=== PATIENT | male | born 1960 | race Caucasian/White ===

== ENCOUNTER 2020-06-24 02:51 | Outpatient (CLI) | payer OTHER, SELFPAY ==
[2020-06-25 13:48] LABS: SARS-CoV-2 RNA PCR Negative
== END 2020-06-24 02:52 | disposition home or self-care (01) ==
LOC: ANHCOVIDDT 02:51
PROVIDERS: PCP Family Medicine; Visit Provider Internal Medicine Gastroenterology
DX: Z01.812 Encounter for preprocedural laboratory examination (principal); Z11.59 Encounter for screening for other viral diseases
CPT/HCPCS: 87635; C9803; U0003

== ENCOUNTER 2020-06-27 01:07 | Day surgery (SDC) | payer OTHER, SELFPAY ==
[2020-06-21 10:45] VITALS: BMI 31.0
--- NOTE | 2020-06-27 12:26 | PM.IMHP ---
H&P: HPI History of Present Illness Date/Time: 06/27/20 12:26 Chief complaint: hx colon polyps Narrative: Reason for visit colonoscopy. This very pleasant gentleman seen in consultation at the request of the primary physician. Impression: Screening and surveillance colonoscopy. The patient's history adenomatous colon polyps and a family history of colorectal cancer. Recommendation: Colonoscopy. History: This very pleasant gentleman has a history of adenomatous colon polyps and a family history of colon cancer. His GI review systems negative. He is here for screening and surveillance colonoscopy. Physical examination: General: very pleasant patient in no acute distress. HEENT: Head was normocephalic sclerae is clear mouth without masses neck was supple. Heart: Rate rhythm regular without S3 or S4. Lungs: CTA. Abdomen: Soft with no guarding or rigidity. Bowel sounds were active. Neurologic: Cranial nerves 2 through 12 intact. No focal defects. No clonus. Musculoskeletal system: Revealed no joint tenderness or swelling no muscle atrophy. Extremities: Reveal no significant edema. Skin: Warm and dry with normal turgor. Mental status: intact. Patient is alert and oriented. Review of Systems Review of Systems: All systems reviewed & are unremarkable except as noted in HPI and below PMFSH Past Medical History Medical History (Updated 06/27/20 @ 12:25 by Shadi Abreu DO) Adenomatous colon polyp Diabetes mellitus Erectile dysfunction Essential (primary) hypertension HLD (hyperlipidemia) HTN (hypertension) Idiopathic gout Osteoarthritis of fingers of both hands Surgical History Surgical History (Updated 06/27/20 @ 12:26 by Shadi Abreu DO) History of knee surgery Left knee - 1994 Hx of colonoscopy Social History Social History Smoking status: Never smoker Second hand tobacco smoke exposure: No Smoking end date: 11/18/86 Alcohol intake: current Substance use: never Substance use type: does not use Meds Home Medications and Allergies Home Medications Medication Instructions Recorded Confirmed Type canagliflozin 300 mg tablet 300 mg PO DAILY #90 tablet 12/28/19 06/21/20 Rx quinapril 20 2 tablet PO DAILY #180 tablet 12/28/19 06/21/20 Rx mg-hydrochlorothiazide 25 mg tablet rosuvastatin 20 mg tablet 20 mg PO .QHS #90 tablet 12/28/19 06/21/20 Rx blood sugar diagnostic #100 each 06/13/20 06/13/20 Rx metformin 500 mg tablet,extended See Rx Instructions .ROUTE 06/27/20 Rx release 24 hr .COMPLEX #360 tablet Allergies Allergy/AdvReac Type Severity Reaction Status Date / Time No Known Allergies Verified 06/21/20 10:38
[2020-06-27 12:37] VITALS: BP 132/84; PULSE 71; RESP 16; TEMP 36.6; O2SAT 97
[2020-06-27] MEDS: LACTATED RINGERS 1,000 ML 150 ML IV CONT (13:03)
[2020-06-27 13:04] LABS: Glucose Point of Care 119 (65-105)
--- NOTE | 2020-06-27 13:16 | WPDANESEPPF ---
Anes - Initial Pre Proc Eval Procedure: Operation Date: 06/27/20 12:30 Proposed Procedures p Screening Colonoscopy - Shadi Abreu DO Date/Time: 06/27/20 13:16 Surgeon: Shadi Abreu DO Pre Op Diagnosis: hx colon polyps Patient Data Age: 60 Gender: M Height: 5 ft 9 in Weight: 95.45 kg Last Vital Signs Temp 97.8 F 06/27/20 12:37 Pulse 71 06/27/20 12:37 Resp 16 06/27/20 12:37 BP 132/84 06/27/20 12:37 Pulse Ox 97 06/27/20 12:37 Allergies Allergy/AdvReac Type Severity Reaction Status Date / Time No Known Allergies Verified 06/27/20 12:32 Home Medications Medication Instructions Recorded Confirmed Type canagliflozin 300 mg tablet 300 mg PO DAILY #90 tablet 12/28/19 06/21/20 Rx quinapril 20 2 tablet PO DAILY #180 tablet 12/28/19 06/21/20 Rx mg-hydrochlorothiazide 25 mg tablet rosuvastatin 20 mg tablet 20 mg PO .QHS #90 tablet 12/28/19 06/21/20 Rx blood sugar diagnostic #100 each 06/13/20 06/13/20 Rx metformin 500 mg tablet,extended See Rx Instructions .ROUTE 06/27/20 Rx release 24 hr .COMPLEX #360 tablet Laboratory Tests 06/27/20 13:01 POC Capillary Glucose 119 mg/dl H mg/dl (65-105) Patient hx anesthesia problems: none Family hx anesthesia problems: none PMFSH Past Medical History Medical History (Updated 06/27/20 @ 12:25 by Shadi Abreu DO) Adenomatous colon polyp Diabetes mellitus Erectile dysfunction Essential (primary) hypertension HLD (hyperlipidemia) HTN (hypertension) Idiopathic gout Osteoarthritis of fingers of both hands Surgical History Surgical History (Updated 06/27/20 @ 12:26 by Shadi Abreu DO) History of knee surgery Left knee - 1994 Hx of colonoscopy Social History Social History Smoking status: Never smoker Second hand tobacco smoke exposure: No Smoking end date: 11/18/86 Alcohol intake: current Substance use: never Substance use type: does not use Anes - Eval Final PreProcedure Day of Procedure 06/27/20 13:16 Patient weight: obese Heart: regular rate and rhythm Lungs: clear to auscultation Airway: Mallampati scale class II Neurological: alert and oriented Last oral intake: >/= 8 hours ASA classification: III Emergent: no Anesthetic plan: proceed Anesthesia type and monitoring: general GIVS and standard monitoring Informed Consent: The patient's anesthetic plan and its attendant risks and benefits were discussed with the patient/family/POA. Questions were solicited and answers provided to the satisfaction of the patient/family/POA.
[2020-06-27] MEDS: SIMETHICONE ORAL SUSPENSION 20 MG/0.3 ML 30 ML BOTTLE 0.6 ML IRRIGATION (14:19)
[2020-06-27 14:35] VITALS: BP 101/65; PULSE 62; RESP 21; O2SAT 93
[2020-06-27 14:45] VITALS: BP 109/71; PULSE 61; RESP 20; O2SAT 94
== END 2020-06-27 15:10 | disposition home or self-care (01) ==
PROVIDERS: PCP Family Medicine; Visit Provider Internal Medicine Gastroenterology
PROC: 0DJD8ZZ Inspection of Lower Intestinal Tract, Via Natural or Artificial Opening Endoscopic (ICD-10-PCS; CPT 45378; principal; 2020-06-27 12:30)
DX: Z12.11 Encounter for screening for malignant neoplasm of colon (principal); D12.2 Benign neoplasm of ascending colon; K63.5 Polyp of colon; K64.8 Other hemorrhoids; Z80.0 Family history of malignant neoplasm of digestive organs; E11.9 Type 2 diabetes mellitus without complications; E78.5 Hyperlipidemia, unspecified; I10 Essential (primary) hypertension; M10.00 Idiopathic gout, unspecified site; N52.9 Male erectile dysfunction, unspecified; Z79.84 Long term (current) use of oral hypoglycemic drugs; E66.9 Obesity, unspecified; Z68.31 Body mass index [BMI] 31.0-31.9, adult
CPT/HCPCS: 45385; 87635; 88305; C9803; J2370; J2704; J7120; U0003

== ENCOUNTER → 2021-12-29 07:33 | Outpatient (CLI) | payer OTHER, SELFPAY ==
--- NOTE | ~2021-12-29 | MR_ITS ---
EXAMINATION: MR hip LT wo con DATE: 12/29/2021 08:33 INDICATION: Left hip pain TECHNIQUE: Magnetic resonance imaging (MRI) of the left hip was performed without intravenous contra st. Sequences included full-field axial PD-weighted FS FSE and T1-weighted FSE, coronal of the pelvis with PD-weighted FS FSE, T2-weighted FSE and T1-weighted FSE, small field of view of the left hip w ith axial PD-weighted FS FSE, sagittal PD-weighted FS FSE, coronal PD-weighted FS FSE and coronal T2 weighted FSE. Additional radial T1-weighted FGR oriented orthogonal to the acetabular rim were obtai jerardo for evaluation of the labrum. COMPARISON: None FINDINGS: Bones/labrum/cartilage: Alignment is normal. There is a region of osteonecrosis underlying the cephalad aspect of the left fe moral head which measures 3.3 cm both AP and medial to lateral. There is a subtle 1 mm cortical step- off at the apex of the femoral head consistent with minimal depression of the articular surface later al to the step-off consistent with secondary collapse of the articular cortex. There is prominent lik christine secondary reactive edema at the left femoral head extending into the neck and intertrochanteric r egion of the proximal left femur. Left hip osteoarthritis with severe nonuniform joint space narrowin g and additional subarticular edema along the anterosuperior to superior lateral aspect of the left a cetabulum. Moderate to severe spondylosis in the visualized lower lumbar spine with mild fibrovascula r degenerative endplate changes with severe disc height loss at L5-S1. Marrow signal is otherwise nor mal throughout the remainder of the pelvis and proximal right femur. Aside from the collapsed of the articular surface of the left femoral head no other fractures identified. Diffuse degenerative tearin g of the left acetabular labrum which appears thickened with diffuse amorphous increased signal. Righ t hip joint space appears relatively preserved on the large [id number] images. Fluid: Asymmetric increased fluid signal at the left hip joint space which could represent a small joint eff usion and/or reactive synovitis. Physiologic amount fluid in the right hip joint. Soft tissues: No asymmetric muscle atrophy at the pelvis or proximal thighs. There is likely reactive muscular sean a medially along side the intratrochanteric region and proximal subtrochanteric left femur. The iliop soas tendons are normal. Mild tendinopathy without discrete tear at the bilateral proximal hamstring tendons. Additional mild right-sided and moderate left-sided gluteus medius and minimus tendinopathy without discrete tear. Limited evaluation of visceral organs of the pelvis is unremarkable. No patho logically enlarged pelvic/inguinal lymphadenopathy. IMPRESSION: 1. 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 2. Diffuse degenerative tearing of the left acetabular labrum. 3. Moderate to severe lumbar spondylosis. 4. Tendinopathy without discrete tears at the bilateral gluteal and proximal hamstring tendons as det virginie above. Reviewed, dictated and finalized at location A. CRUSHER IMPRESSION: 1. 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 2. Diffuse degenerative tearing of the left acetabular labrum. 3. Moderate to severe lumbar spondylosis. 4. Tendinopathy without discrete tears at the bilateral gluteal and proximal jenkins mstring tendons as detailed above.
== END ==
PROVIDERS: PCP Family Medicine; Visit Provider Nurse Practitioner
DX: M87.852 Other osteonecrosis, left femur (principal); M47.896 Other spondylosis, lumbar region
CPT/HCPCS: 73721

== ENCOUNTER 2022-07-30 10:52 | Outpatient (CLI) | payer OTHER, SELFPAY ==
[2022-07-30 19:06] LABS: Basophils Percent Auto 0.7 % (0.2-1.2); Eosinophils Absolute Auto 0.1 K/mm3 (0-0.3); Eosinophils Percent Auto 1.1 % (0-4.4); Hematocrit 52.1 % (42.0-52.0); Hemoglobin 17.2 g/dL (14.0-18.0); Immature Granulocyte Absolute 0.03 K/mm3 (0.00-0.031); Immature Granulocyte Percent A 0.5 % (0-0.5); Immature Platelet Fraction Pct 8.1 % (0.9-11.2); Lymphocytes Absolute Auto 1.95 K/mm3 (0.9-3.2); Lymphocytes Percent Auto 34.8 % (18.3-44.2); Mean Corpuscular Hemoglobin 30.3 pg (26-34); Mean Corpuscular Volume 91.9 fl (80-100); Mean Platelet Volume 12.1 fl (7.4-10.4); Monocytes Absolute Auto 0.5 K/mm3 (0.1-0.6); Monocytes Percent Auto 8.6 % (2.6-8.5); Neutrophils Percent Auto 54.3 % (45.5-73.1); Platelet Count Result 151 k/mm3 (150-375); Red Blood Count 5.67 M/mm3 (4.6-6.20); Red Cell Distribution Width 14.1 % (11.5-14.5); White Blood Count 5.6 K/mm3 (4.5-10.0)
[2022-07-30 19:12] LABS: Alanine Aminotransferase 27 U/L (6-50); Albumin Level 4.4 g/dL (3.5-5.1); Alkaline Phosphatase 77 U/L (38-126); Anion Gap 10 mmol/L (8-16); Aspartate Amino Transferase 39 U/L (17-59); Bilirubin,Total 0.6 mg/dL (0.2-1.3); Blood Urea Nitrogen 16 mg/dL (9-20); Carbon Dioxide 28 mmol/L (22-30); Chloride 100 mmol/L (98-107); Cholesterol 290 mg/dL (0-200); Estimated Glomerular Filt Rate > 60; Glucose 119 mg/dL (65-110); HDL Direct 50 mg/dL; Potassium 4.6 mmol/L (3.4-5.0); Sodium 138 mmol/L (137-145); Triglycerides 157 mg/dL (<150); Uric Acid 5.2 mg/dL (3.5-8.5)
[2022-07-30 19:22] LABS: Creatinine Urine 43.9 mg/dL
[2022-07-30 19:23] LABS: Hemoglobin A1C 6.5 % (<5.7); LDL Cholesterol Direct 210 mg/dL
[2022-07-30 19:43] LABS: Prostate Specific Antigen 1.7 ng/mL (< OR = 4.0)
[2022-07-30 20:04] LABS: MALB Creatinine Ratio < 13.7 mg/g (0-30); Microalbumin Urine Random < 6.0 mg/L (0-16.7)
== END 2022-07-30 10:53 | disposition home or self-care (01) ==
LOC: ANHGOSHLAB 10:53
PROVIDERS: PCP Family Medicine; Visit Provider Family Medicine
DX: Z00.00 Encounter for general adult medical examination without abnormal findings (principal); E78.5 Hyperlipidemia, unspecified; M10.00 Idiopathic gout, unspecified site; E53.8 Deficiency of other specified B group vitamins; I10 Essential (primary) hypertension; E11.9 Type 2 diabetes mellitus without complications; E55.9 Vitamin D deficiency, unspecified; Z12.5 Encounter for screening for malignant neoplasm of prostate
CPT/HCPCS: 36415; 80053; 80061; 82043; 82306; 82607; 83036; 84153; 84443; 84550; 85025; 85055; G0103

== ENCOUNTER 2023-02-04 09:16 | Outpatient (CLI) | payer OTHER, SELFPAY ==
[2023-02-04 20:12] LABS: Basophils Percent Auto 0.6 % (0.2-1.2); Eosinophils Absolute Auto 0.1 K/mm3 (0-0.3); Eosinophils Percent Auto 2.2 % (0-4.4); Hematocrit 48.9 % (42.0-52.0); Immature Granulocyte Absolute 0.01 K/mm3 (0.00-0.031); Immature Granulocyte Percent A 0.2 % (0-0.5); Lymphocytes Absolute Auto 1.93 K/mm3 (0.9-3.2); Lymphocytes Percent Auto 35.7 % (18.3-44.2); Mean Corpuscular HGB Conc 32.7 g/dl (32-36); Mean Corpuscular Hemoglobin 30.7 pg (26-34); Mean Corpuscular Volume 93.9 fl (80-100); Mean Platelet Volume 11.3 fl (7.4-10.4); Monocytes Absolute Auto 0.6 K/mm3 (0.1-0.6); Monocytes Percent Auto 10.5 % (2.6-8.5); Neutrophils Absolute Auto 2.8 K/mm3 (1.3-6.7); Neutrophils Percent Auto 50.8 % (45.5-73.1); Platelet Count Result 147 k/mm3 (150-375); Red Blood Count 5.21 M/mm3 (4.6-6.20); Red Cell Distribution Width 13.1 % (11.5-14.5); White Blood Count 5.4 K/mm3 (4.5-10.0)
[2023-02-04 21:05] LABS: Alanine Aminotransferase 27 U/L (6-50); Albumin Level 4.4 g/dL (3.5-5.1); Alkaline Phosphatase 58 U/L (38-126); Anion Gap 9 mmol/L (8-16); Aspartate Amino Transferase 24 U/L (17-59); Bilirubin,Total 0.7 mg/dL (0.2-1.3); Blood Urea Nitrogen 15 mg/dL (9-20); Calcium 9.5 mg/dL (8.4-10.2); Carbon Dioxide 28 mmol/L (22-30); Chloride 100 mmol/L (98-107); Cholesterol 191 mg/dL (0-200); Estimated Glomerular Filt Rate > 60; Glucose 116 mg/dL (65-110); HDL Direct 39 mg/dL; Potassium 4.6 mmol/L (3.4-5.0); Sodium 137 mmol/L (137-145); Triglycerides 172 mg/dL (<150)
[2023-02-04 21:15] LABS: Creatinine Urine 39.3 mg/dL
[2023-02-04 21:16] LABS: Hemoglobin A1C 7.1 % (<5.7); LDL Cholesterol Direct 120 mg/dL
[2023-02-04 21:34] LABS: MALB Creatinine Ratio < 15.3 mg/g (0-30); Microalbumin Urine Random < 6.0 mg/L (0-16.7)
== END 2023-02-04 09:17 | disposition home or self-care (01) ==
LOC: ANHGOSHLAB 09:17
PROVIDERS: PCP Family Medicine; Visit Provider Nurse Practitioner
DX: E78.5 Hyperlipidemia, unspecified (principal); I10 Essential (primary) hypertension; E11.9 Type 2 diabetes mellitus without complications
CPT/HCPCS: 36415; 80053; 80061; 82043; 83036; 85025

== ENCOUNTER 2023-08-12 09:44 | Outpatient (CLI) | payer OTHER, SELFPAY ==
[2023-08-12 19:05] LABS: Creatinine Urine 36.4 mg/dL
[2023-08-12 19:20] LABS: Hemoglobin A1C 6.5 % (<5.7)
[2023-08-12 19:23] LABS: Microalbumin Urine Random < 6.0 mg/L (0-16.7)
[2023-08-12 19:33] LABS: Alanine Aminotransferase 27 U/L (6-50); Albumin Level 4.7 g/dL (3.5-5.1); Alkaline Phosphatase 57 U/L (38-126); Anion Gap 9 mmol/L (8-16); Aspartate Amino Transferase 31 U/L (17-59); Bilirubin,Total 1.2 mg/dL (0.2-1.3); Blood Urea Nitrogen 17 mg/dL (9-20); Calcium 9.4 mg/dL (8.4-10.2); Carbon Dioxide 28 mmol/L (22-30); Chloride 98 mmol/L (98-107); Cholesterol 223 mg/dL (0-200); Estimated Glomerular Filt Rate > 60; Glucose 98 mg/dL (65-110); HDL Direct 50 mg/dL; Potassium 4.4 mmol/L (3.4-5.0); Sodium 135 mmol/L (137-145); Triglycerides 216 mg/dL (<150)
[2023-08-12 19:42] LABS: Basophils Percent Auto 0.6 % (0.2-1.2); Eosinophils Absolute Auto 0.1 K/mm3 (0-0.3); Eosinophils Percent Auto 2.2 % (0-4.4); Hematocrit 50.4 % (42.0-52.0); Immature Granulocyte Absolute 0.01 K/mm3 (0.00-0.031); Immature Granulocyte Percent A 0.2 % (0-0.5); Lymphocytes Absolute Auto 2.05 K/mm3 (0.9-3.2); Lymphocytes Percent Auto 40.4 % (18.3-44.2); Mean Corpuscular HGB Conc 33.7 g/dl (32-36); Mean Corpuscular Hemoglobin 30.9 pg (26-34); Mean Corpuscular Volume 91.5 fl (80-100); Mean Platelet Volume 11.7 fl (7.4-10.4); Monocytes Absolute Auto 0.5 K/mm3 (0.1-0.6); Monocytes Percent Auto 10.4 % (2.6-8.5); Neutrophils Absolute Auto 2.4 K/mm3 (1.3-6.7); Neutrophils Percent Auto 46.2 % (45.5-73.1); Platelet Count Result 149 k/mm3 (150-375); Red Blood Count 5.51 M/mm3 (4.6-6.20); Red Cell Distribution Width 12.8 % (11.5-14.5); White Blood Count 5.1 K/mm3 (4.5-10.0)
[2023-08-12 19:44] LABS: LDL Cholesterol Direct 137 mg/dL
[2023-08-12 20:19] LABS: Vitamin D 25 Hydroxy 35.5 ng/mL
[2023-08-13 17:50] LABS: Prostate Specific Antigen 0.4 ng/mL (< OR = 4.0)
== END 2023-08-12 09:45 | disposition home or self-care (01) ==
PROVIDERS: PCP Family Medicine; Visit Provider Family Medicine
DX: Z12.5 Encounter for screening for malignant neoplasm of prostate (principal); Z00.00 Encounter for general adult medical examination without abnormal findings; M10.00 Idiopathic gout, unspecified site; E53.8 Deficiency of other specified B group vitamins; Z79.899 Other long term (current) drug therapy; I10 Essential (primary) hypertension; E55.9 Vitamin D deficiency, unspecified; E78.5 Hyperlipidemia, unspecified; E11.9 Type 2 diabetes mellitus without complications
CPT/HCPCS: 36415; 80053; 80061; 82043; 82306; 82607; 83036; 84153; 84443; 84550; 85025; G0103

== ENCOUNTER → 2023-08-12 13:26 | Outpatient (CLI) | payer OTHER, SELFPAY ==
--- NOTE | ~2023-08-12 | US_ITS ---
US soft tissue chest 08/12/2023 13:50 Indication: Localized swelling. Palpable mass. Procedure: High-resolution Limited ultrasound of the right shoulder Comparison: No prior studies for comparison. Findings: There is a complex fluid collection in the area of palpable concern with heterogeneous inte rnal echotexture measuring 1.7 x 1.06 cm. This fluid collection lies adjacent to the acromion. Impression: 1: Complex 1.7 cm fluid collection of the right shoulder in the area of palpable concern, most likely hemorrhage. Consider infection in the appropriate clinical setting. Consider further evaluation with MRI. Reviewed, dictated and finalized at location L. Impression: 1: Complex 1.7 cm fluid collection of the right shoulder in the area of palpabl e concern, most likely hemorrhage. Consider infection in the appropriate clinic al setting. Consider further evaluation with MRI.
== END ==
PROVIDERS: PCP Family Medicine; Visit Provider Family Medicine
DX: R22.2 Localized swelling, mass and lump, trunk (principal)
CPT/HCPCS: 76604

== ENCOUNTER 2024-02-24 08:41 | Outpatient (CLI) | payer OTHER, SELFPAY ==
[2024-02-24 19:59] LABS: Basophils Percent Auto 0.7 % (0.2-1.2); Eosinophils Absolute Auto 0.1 K/mm3 (0-0.3); Eosinophils Percent Auto 2.4 % (0-4.4); Hematocrit 46.8 % (42.0-52.0); Hemoglobin 15.2 g/dL (14.0-18.0); Immature Granulocyte Absolute 0.01 K/mm3 (0.00-0.031); Immature Granulocyte Percent A 0.2 % (0-0.5); Lymphocytes Absolute Auto 1.94 K/mm3 (0.9-3.2); Lymphocytes Percent Auto 36.1 % (18.3-44.2); Mean Corpuscular HGB Conc 32.5 g/dl (32-36); Mean Corpuscular Hemoglobin 30.2 pg (26-34); Mean Corpuscular Volume 92.9 fl (80-100); Mean Platelet Volume 11.1 fl (7.4-10.4); Monocytes Absolute Auto 0.6 K/mm3 (0.1-0.6); Monocytes Percent Auto 11.2 % (2.6-8.5); Neutrophils Absolute Auto 2.7 K/mm3 (1.3-6.7); Neutrophils Percent Auto 49.4 % (45.5-73.1); Platelet Count Result 165 k/mm3 (150-375); Red Blood Count 5.04 M/mm3 (4.6-6.20); Red Cell Distribution Width 13.1 % (11.5-14.5); White Blood Count 5.4 K/mm3 (4.5-10.0)
[2024-02-24 20:52] LABS: Alanine Aminotransferase 22 U/L (6-50); Albumin Level 4.5 g/dL (3.5-5.1); Alkaline Phosphatase 53 U/L (38-126); Anion Gap 9 mmol/L (4-12); Aspartate Amino Transferase 33 U/L (17-59); Bilirubin,Total 0.7 mg/dL (0.2-1.3); Blood Urea Nitrogen 15 mg/dL (9-20); Calcium 9.9 mg/dL (8.4-10.2); Carbon Dioxide 27 mmol/L (22-30); Chloride 100 mmol/L (98-107); Cholesterol 160 mg/dL (0-200); Estimated Glomerular Filt Rate > 60; Glucose 104 mg/dL (65-110); HDL Direct 42 mg/dL; Potassium 4.9 mmol/L (3.4-5.0); Sodium 136 mmol/L (137-145); Triglycerides 172 mg/dL (<150)
[2024-02-24 21:05] LABS: LDL Cholesterol Direct 97 mg/dL
[2024-02-24 23:44] LABS: Hemoglobin A1C 7.2 % (<5.7)
[2024-02-27 14:20] LABS: Vitamin D 1,25 (OH)2 Total 30 pg/mL (18-72); Vitamin D2 1,25 (OH)2 <8 pg/mL; Vitamin D3 1,25 (OH)2 30 pg/mL
== END 2024-02-24 08:42 | disposition home or self-care (01) ==
LOC: ANHGOSHLAB 08:42
PROVIDERS: PCP Family Medicine; Visit Provider Nurse Practitioner Family
DX: Z00.00 Encounter for general adult medical examination without abnormal findings (principal); E11.9 Type 2 diabetes mellitus without complications; E55.9 Vitamin D deficiency, unspecified; I10 Essential (primary) hypertension; E53.8 Deficiency of other specified B group vitamins
CPT/HCPCS: 36415; 80053; 80061; 82607; 82652; 83036; 84443; 85025

== ENCOUNTER 2024-08-24 09:13 | Outpatient (CLI) | payer OTHER, SELFPAY ==
[2024-08-24 13:00] LABS: Basophils Percent Auto 0.6 % (0.2-1.2); Eosinophils Absolute Auto 0.1 K/mm3 (0-0.3); Eosinophils Percent Auto 1.3 % (0-4.4); Hematocrit 50.6 % (42.0-52.0); Hemoglobin 16.6 g/dL (14.0-18.0); Immature Granulocyte Absolute 0.03 K/mm3 (0.00-0.031); Immature Granulocyte Percent A 0.6 % (0-0.5); Lymphocytes Absolute Auto 1.98 K/mm3 (0.9-3.2); Lymphocytes Percent Auto 37.1 % (18.3-44.2); Mean Corpuscular HGB Conc 32.8 g/dl (32-36); Mean Corpuscular Volume 94.6 fl (80-100); Mean Platelet Volume 11.8 fl (7.4-10.4); Monocytes Absolute Auto 0.5 K/mm3 (0.1-0.6); Monocytes Percent Auto 10.1 % (2.6-8.5); Neutrophils Absolute Auto 2.7 K/mm3 (1.3-6.7); Neutrophils Percent Auto 50.3 % (45.5-73.1); Platelet Count Result 166 k/mm3 (150-375); Red Blood Count 5.35 M/mm3 (4.6-6.20); Red Cell Distribution Width 13.2 % (11.5-14.5); White Blood Count 5.3 K/mm3 (4.5-10.0)
[2024-08-24 13:02] LABS: Hemoglobin A1C 7.6 % (<5.7)
[2024-08-24 13:16] LABS: Creatinine Urine 70.4 mg/dL
[2024-08-24 13:20] LABS: Alanine Aminotransferase 31 U/L (6-50); Albumin Level 4.6 g/dL (3.5-5.1); Alkaline Phosphatase 58 U/L (38-126); Anion Gap 8 mmol/L (4-12); Aspartate Amino Transferase 40 U/L (17-59); Bilirubin,Total 1.4 mg/dL (0.2-1.3); Blood Urea Nitrogen 13 mg/dL (9-20); Calcium 9.6 mg/dL (8.4-10.2); Carbon Dioxide 31 mmol/L (22-30); Chloride 96 mmol/L (98-107); Cholesterol 220 mg/dL (0-200); Estimated Glomerular Filt Rate > 60; Glucose 139 mg/dL (65-110); HDL Direct 51 mg/dL; Potassium 4.7 mmol/L (3.4-5.0); Sodium 135 mmol/L (137-145); Triglycerides 263 mg/dL (<150)
[2024-08-24 13:21] LABS: MALB Creatinine Ratio < 8.5 mg/g (0-30); Microalbumin Urine Random < 6.0 mg/L (0-16.7)
[2024-08-24 13:29] LABS: Vitamin D 25 Hydroxy 30.5 ng/mL
[2024-08-24 13:32] LABS: LDL Cholesterol Direct 129 mg/dL
== END 2024-08-24 09:14 | disposition home or self-care (01) ==
LOC: ANHGOSHLAB 09:14
PROVIDERS: PCP Family Medicine; Visit Provider Nurse Practitioner Family
DX: M25.541 Pain in joints of right hand (principal); M25.542 Pain in joints of left hand; I10 Essential (primary) hypertension; E53.8 Deficiency of other specified B group vitamins; E11.9 Type 2 diabetes mellitus without complications; E78.5 Hyperlipidemia, unspecified; E55.9 Vitamin D deficiency, unspecified
CPT/HCPCS: 36415; 80053; 80061; 82043; 82306; 82607; 83036; 85025; 86038; 86039; 86430

== ENCOUNTER 2024-12-07 10:58 | Outpatient (CLI) | payer OTHER, SELFPAY ==
[2024-12-07 13:21] LABS: Basophils Percent Auto 0.4 % (0.2-1.2); Eosinophils Absolute Auto 0.1 K/mm3 (0-0.3); Eosinophils Percent Auto 1.4 % (0-4.4); Hematocrit 51.1 % (42.0-52.0); Hemoglobin 16.8 g/dL (14.0-18.0); Immature Granulocyte Absolute 0.01 K/mm3 (0.00-0.031); Immature Granulocyte Percent A 0.2 % (0-0.5); Lymphocytes Percent Auto 38.7 % (18.3-44.2); Mean Corpuscular HGB Conc 32.9 g/dl (32-36); Mean Corpuscular Hemoglobin 30.6 pg (26-34); Mean Corpuscular Volume 93.1 fl (80-100); Mean Platelet Volume 11.8 fl (7.4-10.4); Monocytes Absolute Auto 0.5 K/mm3 (0.1-0.6); Neutrophils Absolute Auto 2.4 K/mm3 (1.3-6.7); Neutrophils Percent Auto 49.3 % (45.5-73.1); Platelet Count Result 150 k/mm3 (150-375); Red Blood Count 5.49 M/mm3 (4.6-6.20); Red Cell Distribution Width 12.8 % (11.5-14.5); White Blood Count 4.9 K/mm3 (4.5-10.0)
[2024-12-07 13:40] LABS: Alanine Aminotransferase 28 U/L (6-50); Albumin Level 4.6 g/dL (3.5-5.1); Alkaline Phosphatase 61 U/L (38-126); Anion Gap 8 mmol/L (4-12); Aspartate Amino Transferase 38 U/L (17-59); Bilirubin,Total 1.2 mg/dL (0.2-1.3); Blood Urea Nitrogen 17 mg/dL (9-20); Calcium 9.7 mg/dL (8.4-10.2); Carbon Dioxide 31 mmol/L (22-30); Chloride 97 mmol/L (98-107); Cholesterol 196 mg/dL (0-200); Estimated Glomerular Filt Rate > 60; Glucose 136 mg/dL (65-110); HDL Direct 47 mg/dL; Potassium 4.9 mmol/L (3.4-5.0); Sodium 136 mmol/L (137-145); Triglycerides 206 mg/dL (<150)
[2024-12-07 13:42] LABS: Rheumatoid Factor < 12.0 IU/ML (<12)
[2024-12-07 13:52] LABS: Vitamin D 25 Hydroxy 33.1 ng/mL
[2024-12-07 13:58] LABS: LDL Cholesterol Direct 125 mg/dL
[2024-12-07 14:01] LABS: MALB Creatinine Ratio 11.8 mg/g (0-30); Microalbumin Urine Random < 6.0 mg/L (0-16.7)
[2024-12-07 14:24] LABS: Hemoglobin A1C 8.4 % (<5.7)
== END 2024-12-07 10:59 | disposition home or self-care (01) ==
LOC: ANHGOSHLAB 11:00
PROVIDERS: PCP Family Medicine; Visit Provider Internal Medicine
DX: M10.9 Gout, unspecified (principal); M19.079 Primary osteoarthritis, unspecified ankle and foot
CPT/HCPCS: 36415; 80053; 80061; 82043; 82306; 82607; 83036; 85025; 86038; 86039; 86430

== ENCOUNTER 2024-12-07 11:14 | Outpatient (CLI) | payer OTHER, SELFPAY ==
--- NOTE | ~2024-12-07 | XR_ITS ---
Left foot Technique: AP and lateral views were obtained. Clinical History: Gout Findings: No acute fracture or dislocation is seen. Osseous alignment is anatomic. Joint spaces are p reserved without erosive or degenerative change. Soft tissues are unremarkable. Impression: Unremarkable left foot radiographs. Reviewed, dictated and finalized at [facility]. TATION MECHANIC Impression: Unremarkable left foot radiographs.
--- NOTE | ~2024-12-07 | XR_ITS ---
Right foot Technique: AP, oblique, and lateral views were obtained. Clinical History: Gout Findings: No acute fracture or dislocation is seen. Osseous alignment is anatomic. Joint spaces are p reserved without erosive or degenerative change. There are soft tissue calcifications along the media l aspect of the first MTP joint.. Impression: Soft tissue calcifications along the medial aspect of the first MTP joint. No distinct erosions ident ified. Reviewed, dictated and finalized at location M. SIT OPERATIONS SUPERVISOR Impression: Soft tissue calcifications along the medial aspect of the first MTP joint. No d istinct erosions identified.
--- NOTE | ~2024-12-07 | XR_ITS ---
Right Hand Technique: PA and lateral views were obtained. Clinical History: Gout Findings: No acute fracture or dislocation is seen. Osseous alignment is anatomic. Joint spaces are p reserved. Probable focal soft tissue mineralization along the radial aspect of the second DIP joint. No erosions identified.. Impression: Soft tissue calcifications at the second DIP joint region, as above. No distinct erosions identified. Reviewed, dictated and finalized at location . GER MATERIALS MANAGEMENT Impression: Soft tissue calcifications at the second DIP joint region, as above. No distinct erosions identified.
--- NOTE | ~2024-12-07 | XR_ITS ---
Left Hand Technique: PA and lateral views were obtained. Clinical History: Gout Findings: No acute fracture or dislocation is seen. Osseous alignment is anatomic. Joint spaces are p reserved. Soft tissues are unremarkable. Impression: Unremarkable left hand. Reviewed, dictated and finalized at location M. COILER Impression: Unremarkable left hand.
== END 2024-12-07 11:15 | disposition home or self-care (01) ==
LOC: GOSHIMG 11:15
PROVIDERS: PCP Internal Medicine; Visit Provider Internal Medicine
DX: M10.9 Gout, unspecified (principal); M19.079 Primary osteoarthritis, unspecified ankle and foot
CPT/HCPCS: 73120; 73620

== ENCOUNTER 2025-01-11 10:52 | Outpatient (CLI) | payer MEDICARE, SELFPAY ==
--- OUTSIDE RECORDS SUMMARY | 2025-01-11 12:36 | XMS_ITS | Referral Summary ---
Author Organization [facility] Address [address] [place] [address] Care Team Providers Care Agribusiness Internship Name Role Phone Bethany Nunez MD Primary Care Provider Allergies No known active allergies Medications fenofibrate (TRIGLIDE) 160 mg tabletIndicatio ns:hyperlipidem ia Take 160 mg by mouth every morning 01/31/2022 Active metFORMIN XR (GLUCOPHAGE XR) 500 mg 24 hr tabletIndicatio ns:type 2 diabetes mellitus Take 1,000 mg by mouth 2 (two) times a day 02/26/2022 Active quinapriL-hydro chlorothiazide (ACCURETIC) 20-25 mg per tabletIndicatio ns:hypertension Take 2 tablets by mouth every morning 01/31/2022 Active rosuvastatin (CRESTOR) 20 mg tabletIndicatio ns:hyperlipidem ia Take 20 mg by mouth nightly Active dapagliflozin (FARXIGA) 10 mg tabletIndicatio ns:type 2 diabetes mellitus Take 10 mg by mouth every morning Active cholecalciferol (VITAMIN D-3) 2000 unit capsuleIndicati ons:supplement Take 1 capsule by mouth every morning Active aspirin 81 mg enteric coated tablet Take 1 tablet (81 mg total) by mouth daily 60 tablet 04/12/2022 Active amoxicillin 500 mg tablet/capsuleI ndications:Prop hylactic antibiotic TAKE 4 PILL 1 HOUR BEFORE DENTAL APPOINTMENT. 4 tablet/capsul e 5 08/07/2022 Active Active Problems Problem Noted Date Diagnosed Date HTN (hypertension) 04/09/2022 Risk factors for obstructive sleep apnea 022 Type 2 diabetes mellitus 04/09/2022 Primary osteoarthritis of left hip 03/02/2022 Overview (03/02/2022): Added automatically from request for surgery [id number] Social History Tobacco Use Types Packs/Day Years Used Date Smoking Tobacco: Never Smokeless Tobacco: Never AUDIT-C Answer Date Recorded Q1: How often do you have a drink containing alc ohol? 2-3 times a week 04/12/2022 Average Number of Drinks Not on file 022 Frequency of Binge Drinking Not on file 03/19 Sex and Gender Information Value Date Recorded Sex Assigned at Not on file Legal Sex Male 2:38 AM VESSEL CAPTAIN Gender Identity Not on file Sexual Orientation Not on file Last Filed Vital Signs Vital Sign Reading Time Taken Comments Blood Pressure 120/80 04/20/2022 8:30 AM CDT Pulse 71 04/20/2022 8:30 AM CDT Temperature 35.9 C (96.7 F) 04/20/2022 8:30 AM CDT Respiratory Rate 18 04/20/2022 8:30 AM CDT Oxygen Saturation 98% 04/20/2022 8:30 AM CDT Inhaled Oxygen Concentration - - Weight 88.5 kg (195 lb) 04/14/2022 9:20 AM CDT Height 175.3 cm (5' 9 ) 04/14/2022 9:20 AM CDT Body Mass Index 28.8 04/14/2022 9:20 AM CDT Plan of Treatment Not on file Medical Devices Implanted Type Area Airborne Sensor Specialist Device Identifier Shelf Expiration Date Model / Serial / Lot Lens Bilatera l: Eye [employer] [id number] Cup 57mm Acetabular Bi Mentum Femoral Proximal Press Fit - [id number] Implanted:Qty: 1 on 04/12/2022 by Suhail Vazquez MD at [facility] Left: Hip [employer] 08/17/2024 [id number] / / [id number] Description:cup [employer] [id number] Liner 57mm 28mm Acetabular Bi-Mentum Femoral Proximal Polyethylene - [id number] Implanted:Qty: 1 on 04/12/2022 by Suhail Vazquez MD at [facility] Left: Hip [employer] 05/17/2024 [id number] / / [id number] Emphasys Femoral Stem Implanted:Qty: 1 on 04/12/2022 by Suhail Vazquez MD at [facility] Left: Hip [employer] DUP 02/15/2027 [id number] / / [id number] Description:Item not in [employer] / jones off of invoice [employer] Articul/Braulio 28mm Cementless Hip +1.5mm 10/31 Taper Head Femoral Latex Free [id number] - [id number] Implanted:Qty: 1 on 04/12/2022 by Suhail Vazquez MD at [facility] Left: Hip [employer] 02/15/2027 [id number] / / [id number] Procedures Procedure Name Priority Date/Time Associated Diagnosis Comments EGFR Routine 04/02/2022 12:02 PM CDT Primary osteoarthritis of left hip HEMOGLOBIN A1C Routine 04/02/2022 12:02 PM CDT Preoperative testing from Last 3 Months or Most Recently Relevant to Health Maintenance Results * eGFR (04/02/2022 12:02 PM CDT) eGFR 97 mL/min/1. 73 m2 PERRY RYAN Comment: Interpretive Data Reference Interval Normal >/= 90 mL/min/1.73m2 Mildly decreased* 60 - 89 mL/min/1.73m2 Mildly to moderately decreased 45 - 59 mL/min/1.73m2 Moderately to severely decreased 30 - 44 mL/min/1.73m2 Severely decreased 15 - 29 mL/min/1.73m2 Kidney Failure < 15 mL/min/1.73m2 *Relative to young adult level Estimated glomerular filtration rate is determined by the 2020 CKD-EPI equation recommended by the National Kidney Foundation (A Unifying Approach to GFR Estimation: Recommendations of the NKF-ASK Task Force on Reassessing the Inclusion of Race in Diagnosing Kidney Disease, JASN 2020). The CKD-EPI equation should not be used for patients with unstable renal function and has not been validated in children and those over 70. Current interpretive data was last reviewed 2021. Blood 04/02/2022 12:0 2 PM CDT 04/02/2022 12:24 PM CDT Suhail Vazquez MD LAB BLOOD ORDERABLES Jena l Result [facility] [id number] [address] [employer] [place], [place] [id number] * (ABNORMAL) Hemoglobin A1c (04/02/2022 12:02 PM CDT) Hgb A1C 6.4(H) 4.0 - 5.6 % PERRY RYAN Comment:Testing performed by : [facility], [address] [place] [address]., [id number] Estimated Average Glucose 137 mg/dL PERRY RYAN Comment: The ADA recommends reporting an estimated Average Glucose (eAG) with all Hemoglobin A1c results using the equation derived from a study of 507 normal and diabetic adults. Minority populations were underrepresented and children were not included. (Diabetes Care 31:5057-1136, 2008). The eAG is not equivalent to a fasting glucose. Testing performed by: [facility], [address] [place] [address]., [id number] Blood 04/02/2022 12:0 2 PM CDT 04/02/2022 2:32 PM CDT us Nii Dominguez CENTER DIRECTOR LEAD TEACHER LAB BLOOD ORDERABLES Jena l Result Performing Organization Address City/[facility]/ZIP Co de Phone Number [facility] [address] [address] [place] [address] from Last 3 Months or Most Recently Relevant to Health Maintenance Insurance [facility] CHO[facility] PLUS [facility] PLUS [facility] CHOICE PLUS [facility] CHOICE PLUS [place] [id number] Care Teams Agribusiness Internship Relationship Specialty Start Date End Date Bethany Nunez MD PCP - General Family Practice 02/28/22
--- OUTSIDE RECORDS SUMMARY | 2025-01-11 12:36 | XMS_ITS | Clinical Summary ---
Author Organization [facility] Address [facility] [place] [address] Care Team Providers Care Gang Hemstitching Machine Operator Name Role Phone Unavailable Primary Care Provider Unavailabl e Social History Tobacco Use Types Packs/Day Years Used Date Smoking Tobacco: Never Assessed Sex and Gender Information Value Date Recorded Sex Assigned at Not on file Legal Sex Male 5:52 PM CDT Gender Identity Not on file Sexual Orientation Not on file Plan of Treatment Health Maintenance Due Date Last Done Comments Colorectal Cancer Screening Colonoscopy (10 Years) 1960 Annual Physical 1963 Hepatitis C 1978 DTaP, Tdap and Td Vaccines ( 1 - Tdap) 1979 Zoster Vaccines (1 of 2) 2010 COVID-19 Vaccine ( - 2023-2 5 season) 2024 Influenza Adult (#1) 2024 Pneumococcal Vaccine: 65+ Ye ars (1 of 1 - PCV) 2025 RSV Immunization or 60+ Years (1 - 1-dose 75+ series) 2035 Meningococcal B Vaccine Aged Out No l onger eligible based on patient's age to complete this topic Meningococcal Vaccine Aged Out No josie damian eligible based on patient's age to complete this topic Pneumococcal Vaccine: Pediat rics (0 to 5 Years) and At-Risk Patients (6 to 64 Years) Aged Out No longer eligible b ased on patient's age to complete this topic RSV Immunizations Under 20 Months Aged Out No longer eligible based on patient's age to complete this topic
--- OUTSIDE RECORDS SUMMARY | 2025-01-11 12:36 | XMS_ITS | Clinical Summary ---
Author Organization [facility] Address [address], [address] [address] Phone Care Team Providers Care Tare Weigher Name Role Phone Bethany Nunez MD Primary Care Provider Social History Tobacco Use Types Packs/Day Years Used Date Smoking Tobacco: Never Assessed Sex and Gender Information Value Date Recorded Sex Assigned at Not on file Legal Sex Male 9:05 PM CDT Gender Identity Not on file Sexual Orientation Not on file Plan of Treatment Health Maintenance Due Date Last Done Comments Hepatitis C Virus (HCV) Screening 1960 TdaP Immunization 1960 Cologuard 2010 Immunochemical Fecal Occult Blood 2010 Pneumococcal Immunization (5 0+ years) (1 of 1 - PCV) 2010 Zoster Immunization (1 of 2) 2010 PSA Discussion 2015 Influenza Immunization (#1) 2024 SARS-COV-2 Immunization ( - 2023-25 season) 2024 Colonoscopy 06/27/2025 06/27/2020 Colorectal Cancer Screening 06/27/2025 Respiratory Syncytial Virus (RSV) Immunization (Adult) (1 - 1-dose 75+ series) 2035 06/27/2020 Hepatitis B Immunization Aged Out No longer eligible based on patient's age to complete this topic Meningococcal Immunization (ACWY) Aged Out No longer eligible based on patient's age to complete this topic Pneumococcal Immunization Combined Aged Out No longer eligible based on patient's age to complete this topic Rotavirus Immunization Aged Out No lo nger eligible based on patient's age to complete this topic Procedures Procedure Name Priority Date/Time Associated Diagnosis Comments COLONOSCOPY Routine 06/27/2020 from Last 3 Months or Most Recently Relevant to Health Maintenance Results * COLONOSCOPY (06/27/2020) Shadi Abreu DO PROCEDURE/MINOR SURGICAL ORDERA BLES Final Result from Last 3 Months or Most Recently Relevant to Health Maintenance Care Teams Tare Weigher Relationship Specialty Start Date End Date Bethany Nunez MD PCP - General Family Medicine 06/14/20
--- OUTSIDE RECORDS SUMMARY | 2025-01-11 12:36 | XMS_ITS | Clinical Summary ---
Author Organization [facility] Address [address] [place] [address] Care Team Providers Care Echo Tech Name Role Phone Bethany Nunez MD Primary [...] (03/02/2022): Added automatically from request for surgery [id number] Surgical History Surgery Date Site/Laterality Comments COLONOSCOPY KNEE ARTHROSCOPY Left CATARACT EXTRACTION Bilateral Medical History Medical History Date Comments HTN (hypertension) Diabetes (HCC) Family History Medical History Relation Name Comments No Known Problems Mother Anesthesia problems Neg Hx Relation Name Status Comments Mother Social History Tobacco Use Types Packs/Day Years [...] on file 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 Gender Identity Not on file Sexual Orientation Not on file Obstetrics History Last Filed Vital Signs Vital Sign Reading [...] 04/14/2022 9:20 AM CDT Plan of Treatment Health Maintenance Due Date Last Done Comments Albumin Creatinine Ratio, Urine 1960 Colon Cancer Screening-Colonoscopy 1960 Depression Screening 1960 Hepatitis C Screening 1960 Prostate Cancer Screening-PSA 1960 Dilated Eye Exam 1960 Foot Exam 1960 Lipid Panel 1960 Hepatitis B Screening 1978 Pneumococcal vaccine 65+ (1 of 2 - PCV) 1979 Zoster Vaccine (1 of 2) 2010 Hemoglobin A1C 10/03/2022 04/02/2022 eGFR 04/02/2023 04/02/2022 Fall Risk Assessment 04/12/2023 04/12/2022 DTaP/Tdap/Td Vaccine (2 - Td or Tdap) 02/24/202406/2014 Covid-19 Vaccine (3 - season) 2024, 01/23/2021 Influenza Vaccine (#1) 2024 09/14/2021 Abdominal Aortic Aneurysm (AAA) Screen 2025 Well Visit 65+ 2025 Medical Devices Implanted Type Area Gore Stitcher Device Identifier Shelf Expiration Date Model / Serial / Lot Lens Bilatera l: Eye [employer] [id number] Cup 57mm Acetabular Bi Mentum Femoral Proximal Press Fit - [id number] Implanted:Qty: 1 on 04/12/2022 by Suhail Vazquez MD at [facility] Left: Hip [employer] 08/17/2024 [id number] / / [id number] Description:cup [employer]uy [employer] [id number] Liner 57mm 28mm Acetabular Bi-Mentum Femoral Proximal Polyethylene - [id number] Implanted:Qty: 1 on 04/12/2022 by Suhail Vazquez MD at [facility] Left: Hip [employer] 05/17/2024 [id number] / / [id number] Emphasys Femoral Stem Implanted:Qty: 1 on 04/12/2022 by Suhail Vazquez MD at [facility] Left: Hip [employer] DUP 02/15/2027 [id number] / / [id number] Description:Item not in SCCS / jones off of invoice [employer] Articul/Braulio 28mm Cementless Hip +1.5mm 12/14 Taper Head Femoral Latex Free [id number] - [id number] Implanted:Qty: 1 on 04/12/2022 by Suhail Vazquez MD at [facility] Left: Hip [employer] 02/15/2027 [id number] / / [id number] Procedures Procedure Name Priority Date/Time Associated Diagnosis [...] 2 PM CDT 04/02/2022 12:24 PM CDT us Suhail Vazquez MD LAB BLOOD ORDERABLES Jena bustos Result PERRY DUARTEWCH [address] [facility]. [place] [address] * (ABNORMAL) Hemoglobin A1c (04/02/2022 12:02 PM CDT) Hgb A1C 6.4(H) 4.0 - 5.6 % PERRY RYAN Comment:Testing performed by : [facility], [address] [place] [address] [place]., [address] Estimated Average Glucose 137 mg/dL PERRY BJWCH Comment: The ADA recommends reporting an estimated Average Glucose (eAG) with all Hemoglobin A1c results using the equation derived from a study of 507 normal and diabetic adults. Minority populations were underrepresented and children were not included. (Diabetes Care 31:5661-2384, 2008). The eAG is not equivalent to a fasting glucose. Testing performed by: [facility], [address] [place]., [address] Blood 04/02/2022 12:0 2 PM CDT 04/02/2022 2:32 PM CDT us Nii Dominguez NP LAB BLOOD ORDERABLES Jena bustos Result PERRY DUARTEWCH [address] [facility]. Department [place] [address] from Last 3 Months or Most Recently Relevant to Health Maintenance Insurance [facility] CHOICE PLUS [facility] HMO/PPO Address: [facility] [address] [place] [address] [facility] H[facility]/PPO Address: [address] [place] [address] [facility] HMO/PPO Address: [place] [address] [facility] HMO/PPO Address: [address] [place] [address], [place] [address] Care Teams Echo Tech Relationship Specialty Start Date End Date Bethany Nunez MD PCP - General Family Practice 02/28/22
== END 2025-01-11 10:53 | disposition home or self-care (01) ==
LOC: ANHGOSHLAB 10:56
PROVIDERS: PCP Family Medicine; Visit Provider Internal Medicine
DX: M10.9 Gout, unspecified (principal)
CPT/HCPCS: 36415; 84550; 86038; 86039

== ENCOUNTER 2025-03-29 12:01 | Emergency (ER) | payer MEDICARE, SELFPAY ==
--- NOTE | ~2025-03-29 | XR_ITS ---
XR shoulder RT min 2V Ordering provider: Madison Sim APRN History: . Fell yesterday, Rt shoulder pain . Comparison: None. FINDINGS: BONES: Small bony fragment seen near to the acromion process. Otherwise, No definite acute fracture o r dislocation. JOINT SPACES: The acromioclavicular joint shows osteoarthritic changes. The glenohumeral joint is nor mal. SOFT TISSUES: Normal. IMPRESSION: No acute osseous abnormality right shoulder. Small bony fragment near to the acromion process which may be acute or old fracture versus ossificati on of the supraspinatous tendon. Reviewed, dictated and finalized at location A. IMPRESSION: No acute osseous abnormality right shoulder. Small bony fragment near to the acromion process which may be acute or old frac ture versus ossification of the supraspinatous tendon.
--- NOTE | ~2025-03-29 | XR_ITS ---
XR knee LT 3V Ordering provider: Madison Sim APRN History: . Fell yesterday, pain/swelling Lt knee . Comparison: None. FINDINGS: BONES: Small bony fragment seen inferior to the patella. Irregularity in the area of the tibial tuber osity is noted. JOINT SPACES: Normal. SOFT TISSUES: Thickening in the area of the quadriceps and patellar tendons. IMPRESSION: No acute osseous abnormality left knee. Bony fragment seen inferior to the patella which may be old avulsion fracture from the tibial tuberos ity. Reviewed, dictated and finalized at location A. IMPRESSION: No acute osseous abnormality left knee. Bony fragment seen inferior to the patella which may be old avulsion fracture f rom the tibial tuberosity.
--- NOTE | 2025-03-29 12:08 | ED.WOUNDLAC ---
HPI - Wound/Laceration General Chief Complaint: Wound/Laceration Stated Complaint: L KNEE LACERATION Source: patient Mode of arrival: ambulatory Limitations: no limitations History of Present Illness HPI narrative: Patient is a 65 year old male who presents to the clinic with complaints of a laceration of the left knee and right shoulder pain. He states that he was walking into his house and tripped going inside from his patio and landed on his right shoulder. He applied liquid Band-Aid and a Tegaderm to his laceration at home, but it continued to drain through. He reports that he is not having any new tingling in fingers. Denies any numbness or tingling in his right knee. Related Data Home Medications ?Medication ?Instructions ?Recorded ?Confirmed ?Last Taken ?Type cholecalciferol (vitamin D3) 50 50 mcg PO DAILY 12/11/21 08/24/24 Unknown History mcg (2,000 unit) capsule multivitamin 1 tablet PO DAILY 02/04/23 08/24/24 Unknown History fluticasone propionate 50 2 spray intranasal DAILY PRN 08/12/23 08/24/24 Unknown History mcg/actuation nasal spray,suspension (Flonase Allergy Relief) indomethacin 50 mg capsule 100 mg PO .PRN 08/12/23 08/24/24 Unknown History Allergies Allergy/AdvReac Type Severity Reaction Status Date / Time No Known Allergies Allergy Verified 03/29/25 12:05 Review of Systems Review of Systems: CONSTITUTIONAL: Denies body aches, fever, chills, or sweats. EYES: Denies visual changes, redness, or discharge. ENT: Denies rhinorrhea, congestion CARDIOVASCULAR: Denies chest pain, palpitations, or edema. RESPIRATORY: Denies cough or dyspnea. GASTROINTESTINAL: Denies abdominal pain, nausea, vomiting, or diarrhea. SKIN: ?Reports a laceration to left knee. MUSCULOSKELETAL: Denies back pain, joint pain, or myalgia. Reports right shoulder pain. NEUROLOGIC: Denies headache, numbness, tingling, or weakness. All systems reviewed & are unremarkable except as noted in HPI and below PMFSH Past Medical History Medical History Adenomatous colon polyp Erectile dysfunction Essential (primary) hypertension Idiopathic gout Osteoarthritis of fingers of both hands Vitamin D deficiency Surgical History Surgical History History of cataract surgery (~2019) History of knee surgery Left knee - 1994 History of left hip replacement (~04/12/22) Hx of colonoscopy Family History Family History Father Afibrinogenemia Father Diabetes mellitus Father Carcinoma of colon Father Macular degeneration Social History Social History Smoking status: Never smoker Second hand tobacco smoke exposure: No Smoking end date: 11/18/86 Alcohol intake: current Alcohol use details: 6 beers consumed weekly Substance use: never Substance use type: does not use Lack of Transportation: No Lack of Food: Never True Current Housing: I Have Housing Concerned About Future Housing: No Difficulty Paying Gas/Electric Bills: No Difficulty Paying for Meds: No Currently Unemployed: No Education: High School Diploma/GED Difficulty w/ Childcare or Family Care: No Living arrangements: with family Additional living arrangements comments: Occupation/Education: occupation Gender identity (if verbalized by the patient): Male Sexual Orientation (if Verbalized by the Patient): Straight or Heterosexual Spiritual care concerns: No Agree to blood products: Yes Comments At time of signature, I have reviewed and agree with nursing past medical, surgical, social and family history unless otherwise noted. Please see nursing chart for further information. There is no relevant family history pertinent to the presenting complaint. Exam Narrative: GENERAL: Well-appearing HEAD: Normocephalic, atraumatic. EYES: ?Conjunctivae clear, and EOMI. ENT: Mucous membranes moist. Oropharynx without edema, erythema or lesions. NECK: Supple. No lymphadenopathy CHEST: Clear to auscultation. HEART: Regular rate and rhythm. Extremities: Right shoulder has normal strength and sensation, decreased range of motion with rotation and endorses pain with movement. No edema or ecchymosis, No point tenderness. No open wounds, skin tenting, or obvious deformity; alignment normal, pulse palpable and equal bilaterally, skin warm, dry, pink. Capillary refill less than 3 seconds. Left knee has normal strength and sensation, decreased range of motion with flexion due to laceration, and denies pain with movement. No edema or ecchymosis, No point tenderness. no skin tenting, or obvious deformity; alignment normal, pulse palpable and equal bilaterally, skin warm, dry, pink. Capillary refill less than 3 seconds. SKIN: Warm, dry. ?3.5 cm linear laceration and scant serous drainage noted to left knee. NEURO: ?Alert and oriented x3.? Course Course Level of Care: Express Care Visit Vital Signs Vital signs: Vital Signs Temperature 98 F 03/29/25 12:11 Pulse Rate 73 03/29/25 12:11 Respiratory Rate 16 03/29/25 12:11 Blood Pressure 189/83 H 03/29/25 12:11 Pulse Oximetry 98 03/29/25 12:11 Temperature 98 F 03/29/25 12:11 Pulse Rate 73 03/29/25 12:11 Respiratory Rate 16 03/29/25 12:11 Blood Pressure 189/83 H 03/29/25 12:11 Pulse Oximetry 98 03/29/25 12:11 Reviewed. MDM - Wound/Laceration MDM Narrative Medical decision making narrative: Discussed physical exam findings and xrays. Antibiotic given for infection prevention for laceration. Dressing applied. Patient has Jarek-Schlatter's and irregularity of his right shoulder. He has had an ultrasound previously, but his diagnosis was not confirmed. Follow up with Orthopedics recommended. Advised supportive measures and signs/symptoms to go to the ER. Pt is appropriate for outpatient treatment and follow up. Differential Diagnosis Differential diagnosis: Likely laceration and other (shoulder fracture, knee fracture) Imaging Data Radiologist's impression: ITS Impressions Shoulder X-Ray 03/29/25 12:50 IMPRESSION: No acute osseous abnormality right shoulder. Small bony fragment near to the acromion process which may be acute or old fracture versus ossification of the supraspinatous tendon. Knee X-Ray 03/29/25 12:54 IMPRESSION: No acute osseous abnormality left knee. Bony fragment seen inferior to the patella which may be old avulsion fracture from the tibial tuberosity. Critical Care Time Critical Care Time Critical Care Time: No Discharge Plan Discharge Clinical Impression: Acute shoulder pain Qualifiers: Laterality: right Qualified Code(s): M25.511 - Pain in right shoulder Laceration of knee, left Qualifiers: Encounter type: initial encounter Qualified Code(s): S81.012A - Laceration without foreign body, left knee, initial encounter Patient Disposition: Home Condition: Stable Instructions: Laceration (ED), Shoulder Sprain (ED) Additional Instructions: Sprain: To control swelling and prevent further injury with DURAN (protect, rest, ice and compression) -Rest the injury site for a least a day or two and avoid inciting activity -Apply ICE to injury as many times a possible a day for 20 minutes at a time for the first 48hours or until swelling and inflammation have reduced. Elevate injured area above a heart level, if possible, for at least 24 hours -Compression: gently wrapping with an Robert or other elastic bandage (don?t wrap tightly) For pain: alternate Acetaminophen(Tylenol) and Nonsteroidal anti-inflammatory agent (NSAIDs-ibuprofen) -Acetaminophen(Tylenol) every 4-6hours - Nonsteroidal anti-inflammatory agent (NSAIDs-ibuprofen): every 4-6hours Recheck or seek ER visit if the injured area is cool, pale, tingling, numbness, or new/severe pain with decrease sensation. Wound: Keep the area clean and dry - cleanse with warm water and mild soap and allow to fully dry. Ok to apply neosporin to the site Keep it open to air (no bandages) Watch for worsening symptoms including pain, redness, swelling, streaking, pus/drainage, fever. Go to the ER with any of these symptoms or concerns. Follow up with primary care provider in 1 week as needed. Patient Language: Pakistani Prescriptions: New cephalexin 500 mg capsule 500 mg PO Q12H 5 Days Qty: 10 0RF No Action cholecalciferol (vitamin D3) 50 mcg (2,000 unit) capsule 50 mcg PO DAILY multivitamin Tablet 1 tablet PO DAILY (DME) OneTouch Verio test strips Strip See Rx Instructions .ROUTE .MEDSUPPLY Qty: 100 5RF Rx Instructions: Test 3x daily before a meal indomethacin 50 mg capsule 100 mg PO .PRN Rx Instructions: administer with food or milk fluticasone propionate [Flonase Allergy Relief] 50 mcg/actuation spray,suspension 2 spray intranasal DAILY PRN Rx Instructions: administer into each nostril cyanocobalamin (vitamin B-12) 1,000 mcg tablet, sublingual 1,000 mcg sublingual DAILY Qty: 90 1RF lisinopril-hydrochlorothiazide 20-25 mg tablet 1 tablet PO DAILY Qty: 90 1RF fenofibrate 160 mg tablet 160 mg PO DAILY Qty: 90 1RF Farxiga 10 mg tablet 10 mg PO DAILY Qty: 90 2RF rosuvastatin 40 mg tablet 40 mg PO QHS Qty: 90 1RF metformin 500 mg tablet extended release 24 hr 2,000 mg PO DAILY Qty: 360 1RF glipizide 5 mg tablet extended release 24hr 5 mg PO DAILY Qty: 90 1RF Follow-up/Referrals: Jam Kuo MD [Physician] - Levy Nunez MD [Primary Care Provider] - Time of Disposition: 13:21
[2025-03-29 12:11] VITALS: BP 189/83; PULSE 73; RESP 16; TEMP 36.6; O2SAT 98
[2025-03-29] MEDS: TETANUS,DIPHTHERIA,AC PERTUSSIS ADULT (0.5 ML) BOOSTRIX IM (13:07)
== END 2025-03-29 13:26 | disposition home or self-care (01) ==
PROVIDERS: PCP Family Medicine
DX: S81.012A Laceration without foreign body, left knee, initial encounter (principal); W01.0XXA Fall on same level from slipping, tripping and stumbling without subsequent striking against object, initial encounter; M25.511 Pain in right shoulder; Z23 Encounter for immunization; I10 Essential (primary) hypertension; M10.00 Idiopathic gout, unspecified site; E55.9 Vitamin D deficiency, unspecified; M19.042 Primary osteoarthritis, left hand; M19.041 Primary osteoarthritis, right hand; Z96.642 Presence of left artificial hip joint; Z87.891 Personal history of nicotine dependence
CPT/HCPCS: 73030; 73562; 90471; 90715; 99214; G0463

== ENCOUNTER 2025-09-06 15:52 | Outpatient (CLI) | payer MEDICARE, SELFPAY ==
[2025-09-06 16:14] LABS: Hematocrit 49.6 % (42.0-52.0); Hemoglobin 17.0 g/dL (14.0-18.0); Immature Granulocyte Percent A 0.2 % (0-0.5); Lymphocytes Absolute Auto 1.50 K/mm3 (0.9-3.2); Mean Corpuscular HGB Conc 34.3 g/dl (32-36); Mean Corpuscular Hemoglobin 31.4 pg (26-34); Mean Corpuscular Volume 91.5 fl (80-100); Nucleated Red Blood Cells Absolute Auto 0.000 K/mm3 (0.0-0.012); Nucleated Red Blood Cells Perc 0.0 % (0.0-0.2); Platelet Count Result 159 k/mm3 (150-375); Red Blood Count 5.42 M/mm3 (4.6-6.20); White Blood Count 5.0 K/mm3 (4.5-10.0)
[2025-09-06 16:31] LABS: Hemoglobin A1C 6.8 % (<5.7)
[2025-09-06 16:35] LABS: Alanine Aminotransferase 28 U/L (6-50); Albumin Level 4.6 g/dL (3.5-5.1); Alkaline Phosphatase 66 U/L (38-126); Anion Gap 8 mmol/L (4-12); Aspartate Amino Transferase 30 U/L (17-59); Bilirubin,Total 1.1 mg/dL (0.2-1.3); Blood Urea Nitrogen 10 mg/dL (9-20); Calcium 9.3 mg/dL (8.4-10.2); Carbon Dioxide 29 mmol/L (22-30); Chloride 100 mmol/L (98-107); Cholesterol 251 mg/dL (0-200); Estimated Glomerular Filt Rate > 60; Glucose 89 mg/dL (65-110); HDL Direct 48 mg/dL; Potassium 3.8 mmol/L (3.4-5.0); Sodium 137 mmol/L (137-145); Total Protein 8.4 g/dL (6.3-8.2); Triglycerides 425 mg/dL (<150); Uric Acid 5.9 mg/dL (3.5-8.5)
[2025-09-06 16:52] LABS: MALB Creatinine Ratio < 7.3 mg/g (0-30)
[2025-09-06 17:05] LABS: Thyroid Stimulating Hormone 1.910 uIU/mL (0.465-4.680)
--- OUTSIDE RECORDS SUMMARY | 2025-09-06 18:25 | XMS_ITS | Clinical Summary ---
Author Organization [facility] Address [facility] [place] [address] Care Team Providers Care Physician Non Invasive Cardiologist Name Role Phone Unavailable Primary Care Provider [...] Colorectal Cancer Screening Colonoscopy (10 Years) 1960 Hepatitis C 1978 DTaP, Tdap and Td Vaccines ( 1 - Tdap) 1979 Pneumococcal Vaccine: 50+ Ye ars (1 of 1 - PCV) 2010 Zoster Vaccines (1 of 2) 2010 COVID-19 Vaccine (1 - 2023-2 5 season) 2025 Influenza Adult (#1) 2025 RSV Immunization or 60+ Years (1 - 1-dose 75+ series) 2035 Hepatitis A Vaccines Aged Out No long er eligible based on patient's age to complete this topic Meningococcal B Vaccine Aged Out No l onger eligible based on patient's age to complete this topic Meningococcal Vaccine Aged Out No josie damian eligible based on patient's age to complete this topic RSV Immunizations Under 20 Months Aged Out No longer eligible based on patient's age to complete this topic
--- OUTSIDE RECORDS SUMMARY | 2025-09-06 18:25 | XMS_ITS | Clinical Summary ---
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 Gender Identity Not on file Sexual Orientation [...] 9:20 AM CDT Height 175.3 cm (5' 9) 04/14/2022 9:20 AM CDT Body Mass Index [...] Vaccine (2 - Td or Tdap) 02/24/202406/2014 Abdominal Aortic Aneurysm (AAA) Screen 2025 Well Visit 65+ 2025 Covid-19 Vaccine (3 - season) 2025, 01/23/2021 Influenza Vaccine (#1) 2025 09/14/2021 Medical Devices Implanted Type Area Garage Door Technician Device Identifier Shelf Expiration Date Model / Serial / Lot Lens Bilatera l: Eye [employer] [id number] Cup 57mm Acetabular Bi Mentum Femoral Proximal Press Fit - [id number] Implanted:Qty: 1 on 04/12/2022 by Suhail Vazquez MD at [facility] Left: Hip [employer] 08/17/2024 [id number] / / [id number] Description:cup [employer] [id number] Liner 57mm 28mm Acetabular Bi-Mentum Femoral Proximal Polyethylene - [id number] Implanted:Qty: 1 on 04/12/2022 by Suhail Vazquez MD at [facility] Left: Hip [employer] 05/17/2024 [id number] / / [id number] Emphasys Femoral Stem Implanted:Qty: 1 on 04/12/2022 by Suhail Vazquez MD at [facility] Left: Hip [employer] DUP 02/15/2027 4742-07-200 / / [id number] Description:Item not in SCCS / jones off of invoice [employer] Articul/Braulio 28mm Cementless Hip +1.5mm 12/14 Taper Head Femoral Latex Free [id number] - [id number] Implanted:Qty: 1 on 04/12/2022 by Suhail Vazquez MD at [facility] Left: Hip [employer] 02/15/2027 [id number] / / [id number] Procedures Procedure Name Priority Date/Time Associated Diagnosis [...] MD LAB BLOOD ORDERABLES Jena l Result PERRY DUARTECH [address] [facility] [employer] [place] [address] * (ABNORMAL) Hemoglobin A1c (04/02/2022 12:02 PM CDT) Hgb A1C 6.4(H) 4.0 - 5.6 % PERRY RYAN Comment:Testing performed by : [facility], [facility] [place] [address] Estimated Average Glucose 137 mg/dL PERRY BJWCH Comment: The ADA recommends reporting an estimated Average Glucose (eAG) with all Hemoglobin A1c results using the equation derived from a study of 507 normal and diabetic adults. Minority populations were underrepresented and children were not included. (Diabetes Care 31:6392-7186, 2008). The eAG is not equivalent to a fasting glucose. Testing performed by: [facility], [address] [place]., [address] Blood 04/02/2022 12:0 2 PM CDT 04/02/2022 2:32 PM CDT us Nii Dominguez NP LAB BLOOD ORDERABLES Jena bustos Result PERRY DUARTECH [address] [facility]. Department [place] [address] from Last 3 Months or Most Recently Relevant to Health Maintenance Insurance [facility] CHOICE PLUS [facility] CHO[facility] PL[facility] Care Teams Supervisor Slitting And Shipping Relationship Specialty Start Date End Date Bethany Nunez MD PCP - General Family Practice 02/28/22
--- OUTSIDE RECORDS SUMMARY | 2025-09-06 18:25 | XMS_ITS | Clinical Summary ---
Author Organization [facility] Address [address] [address] Phone Care Team Providers Care Odd Job Worker Name Role Phone Bethany Nunez MD Primary [...] (HCV) Screening 1960 TdaP Immunization 1960 Cologuard 2005 Immunochemical Fecal Occult Blood 2005 Pneumococcal Immunization (5 0+ years) (1 of 1 - PCV) 2010 Zoster Immunization (1 of 2) 2010 Colonoscopy 06/27/2025 06/27/2020 Colorectal Cancer Screening 06/27/2025 Influenza Immunization (#1) 2025 SARS-COV-2 Immunization ( - season) 2025 Respiratory Syncytial Virus (RSV) Immunization (Adult) (1 - 1-dose 75+ series) 2035 Hepatitis B Immunization Aged Out No longer eligible based on patient's age to complete this topic Human Papillomavirus (HPV) Immunization Aged Out No longer eligible b ased [...] Recently Relevant to Health Maintenance Care Teams Odd Job Worker Relationship Specialty Start Date End Date Bethany Nunez MD PCP - General Family Medicine 06/14/20
[2025-09-07 09:08] LABS: PSA, Free 0.10 ng/mL
== END 2025-09-06 15:53 | disposition home or self-care (01) ==
LOC: ANHLAB 15:55
PROVIDERS: PCP Family Medicine; Visit Provider Family Medicine
DX: E03.9 Hypothyroidism, unspecified (principal); I10 Essential (primary) hypertension; E11.9 Type 2 diabetes mellitus without complications; E78.2 Mixed hyperlipidemia; N40.1 Benign prostatic hyperplasia with lower urinary tract symptoms; E79.0 Hyperuricemia without signs of inflammatory arthritis and tophaceous disease
CPT/HCPCS: 36415; 80053; 80061; 82043; 83036; 84153; 84154; 84443; 84550; 85025